=== PATIENT | female | born 1980 | race Caucasian/White ===

== ENCOUNTER 2016-07-29 19:15 | Emergency (ER) | payer OTHER ==
[~2016-07-29] VITALS: Ht 170.2 cm; Wt 51.1 kg
[~2016-07-29 19:15] MED LIST: ACET500C5 PO; ALPR0.5T PO; ALPR2TAB PO; BACTDS PO; CEPH-443 PO
[2016-07-29 19:49] VITALS: Ht 170.2 cm; Wt 51.1 kg
[2016-07-29] MEDS ORDERED: ALPR1TAB2 PO (20:28)
--- NOTE | 2016-07-29 20:33 | ERD ---
ER Documentation Chief Complaint Date/Time DATE: 07/29/16 TIME: 20:31 Chief Complaint pt reports panic attack that started this morning. abc norahct,nad HPI 35-year-old female presents here in emergency department for refill of Xanax medication and anxiety attack started this morning. Patient has been having a lot of stress lately, and problems with her car. Patient ran out of her Xanax, patient is scheduled to refill medications on . Patient does not have a patient. Patient denies any dizziness. Patient does not verbalize homicidal or suicidal ideations. ROS All systems reviewed and are negative except as per history of present illness. Medications Home Meds Active Scripts Alprazolam* (Xanax*) 1 Mg Tab, 1 MG PO Q8H Y for ANXIETY, #7 TAB Prov:KRISTY ROGERS REVERBERATORY FURNACE OPERATOR 07/29/16 Acetaminophen* (Tylophen*) 500 Mg Capsule, 1 CAP PO Q6H Y for PAIN AND OR ELEVATED TEMP, #20 CAP Prov:KRISTY ROGERS NP 01/30/16 Sulfamethoxazole-Trimethoprim* (Bactrim* DS) 800-160 Mg Tab, 1 TAB PO BID for 10 Days, TAB Prov:KRISTY ROGERS REVERBERATORY FURNACE OPERATOR 01/30/16 Cephalexin* (Keflex*) 500 Mg Capsule, 500 MG PO QID for 10 Days, CAP Prov:KRISTY ROGERS NP 01/30/16 Alprazolam* (Xanax*) 2 Mg Tablet, 2 MG PO BID, #10 TAB Prov:CHARISMA BUTTERFIELD PA-C 03/06/15 Alprazolam* (Xanax*) 0.5 Mg Tab, 0.5 MG PO Q8H Y for ANXIETY, #10 TAB Prov:JIMMY ROBISON 02/25/15 Allergies Allergies: Coded Allergies: diclofenac (Verified Allergy, Unknown, 02/24/15) meloxicam (Verified Allergy, Unknown, 02/24/15) Uncoded Allergies: QUINALLINES (Allergy, Unknown, 02/24/15) PMhx/Soc History of Surgery: No Anesthesia Reaction: No Hx Neurological Disorder: No Hx Respiratory Disorders: No Hx Cardiac Disorders: No Hx Psychiatric Problems: No Hx Miscellaneous Medical Probl: Yes (ANXIETY/CHRONIC PAIN) Hx Alcohol Use: No Hx Substance Use: No Hx Tobacco Use: Yes FmHx Family History: No coronary disease, No diabetes, No other Physical Exam Vitals Vital Signs Date Time Temp Pulse Resp B/P Pulse Ox O2 Delivery O2 Flow Rate FiO2 07/29/16 19:49 98.1 67 16 142/84 99 Physical Exam GENERAL: The patient is well developed and appropriate for usual state of health, in no apparent distress. CHEST: Clear to auscultation bilaterally. There are no rales, wheezes or rhonchi. HEART: Regular rate and rhythm. No murmurs, clicks, rubs or gallops. No S3 or S4. ABDOMEN: Soft, nontender and nondistended. Good bowel sounds. No rebound or guarding. No gross peritonitis. No gross organomegaly or masses. No Lockett sign or McBurney point tenderness. BACK: No midline or flank tenderness. EXTREMITIES: Equal pulses bilaterally. There is no peripheral clubbing, cyanosis or edema. No focal swelling or erythema. Full range of motion. Grossly neurovascularly intact. NEURO: Alert and oriented. Cranial nerves 2-12 intact. Motor strength in all 4 extremities with 5/5 strength. Sensation grossly intact. Normal speech and gait. SKIN: There is no apparent rash or petechia. The skin is warm and dry. HEMATOLOGIC AND LYMPHATIC: There is no evidence of excessive bruising or lymphedema. No gross cervical, axillary, or inguinal lymphadenopathy. PSYCHIATRIC: Patient is calm and cooperative. Not verbalizing homicidal or suicidal ideations. Procedures/MDM Medical decision making: Patient's symptoms likely consistent with anxiety attack, here for complaint of medication refill. Patient was recently Xanax, 7 pills only, was advised to follow with primary care doctor for further medications, patient has a refill appointment on . Patient was advised to return for homicidal or suicidal ideations, any other worsening symptoms. Patient was advised to return to emergency department for any worsening symptoms. Follow-up with primary care doctor in 1-2 days for reevaluation of symptoms and for referral medications. Departure Diagnosis: Primary Impression: Encounter for medication refill Additional Impression: Anxiety Condition: Stable Patient Instructions: Anxiety Reaction (Child) Referrals: CAROL ANN MEJIA (PCP) Additional Instructions: see PMD as per appt KRISTY ROGERS NP Jul 29, 2016 20:33
== END 2016-07-29 20:31 | disposition home or self-care (01) ==
LOC: E/R 19:15
DX: Z76.0 Encounter for issue of repeat prescription (principal); Z72.0 Tobacco use
CPT/HCPCS: 99282

== ENCOUNTER 2016-12-13 04:14 | Emergency (ER) | payer OTHER ==
[~2016-12-13] VITALS: Ht 170.2 cm; Wt 58.5 kg
[~2016-12-13 04:14] MED LIST changes: +ALPR1TAB2 PO
[2016-12-13 04:25] VITALS: Ht 170.2 cm; Wt 58.5 kg
[2016-12-13] MEDS ORDERED: ALPR2TAB PO (04:42)
--- NOTE | 2016-12-13 04:53 | ERD ---
ER Documentation Chief Complaint Date/Time DATE: 12/13/16 TIME: 04:44 Chief Complaint med refill on xanax 2mg bid HPI 36-year-old female presents to emergency department for refill of her Xanax, is unable to see her primary care doctor until December 22, patient has been going to different to different urgent cares for refill of her prescriptions. Patient denies any suicidal or homicidal ideations. Denies any other symptoms, denies any anxiety attacks at this time. ROS All systems reviewed and are negative except as per history of present illness. Medications Home Meds Active Scripts Alprazolam* (Xanax*) 2 Mg Tablet, 2 MG PO Q8H Y for ANXIETY, #5 TAB Prov:KRISTY ROGERS ORNITHOLOGY TEACHER 12/13/16 Alprazolam* (Xanax*) 1 Mg Tab, 1 MG PO Q8H Y for ANXIETY, #7 TAB Prov:KRISTY ROGERS ORNITHOLOGY TEACHER 07/29/16 Acetaminophen* (Tylophen*) 500 Mg Capsule, 1 CAP PO Q6H Y for PAIN AND OR ELEVATED TEMP, #20 CAP Prov:KRISTY ROGERS ORNITHOLOGY TEACHER 01/30/16 Sulfamethoxazole-Trimethoprim* (Bactrim* DS) 800-160 Mg Tab, 1 TAB PO BID for 10 Days, TAB Prov:KRISTY ROGERS ORNITHOLOGY TEACHER 01/30/16 Cephalexin* (Keflex*) 500 Mg Capsule, 500 MG PO QID for 10 Days, CAP Prov:KRISTY ROGERS NP 01/30/16 Alprazolam* (Xanax*) 2 Mg Tablet, 2 MG PO BID, #10 TAB Prov:CHARISMA BUTTERFIELD PA-C 03/06/15 Alprazolam* (Xanax*) 0.5 Mg Tab, 0.5 MG PO Q8H Y for ANXIETY, #10 TAB Prov:JIMMY ROBISON 02/25/15 Allergies Allergies: Coded Allergies: diclofenac (Verified Allergy, Unknown, 02/24/15) meloxicam (Verified Allergy, Unknown, 02/24/15) Uncoded Allergies: QUINALLINES (Allergy, Unknown, 02/24/15) PMhx/Soc Medical and Surgical Hx: pt denies Surgical Hx History of Surgery: No Anesthesia Reaction: No Hx Neurological Disorder: No Hx Respiratory Disorders: No Hx Cardiac Disorders: No Hx Psychiatric Problems: No Hx Miscellaneous Medical Probl: Yes (ANXIETY/CHRONIC PAIN) Hx Alcohol Use: No Hx Substance Use: No Hx Tobacco Use: Yes Smoking Status: Current every day smoker FmHx Family History: No coronary disease, No diabetes, No other Physical Exam Vitals Vital Signs Date Time Temp Pulse Resp B/P Pulse Ox O2 Delivery O2 Flow Rate FiO2 12/13/16 04:25 98.3 75 18 124/81 100 Physical Exam GENERAL: The patient is well developed and appropriate for usual state of health, in no apparent distress. CHEST: Clear to auscultation bilaterally. There are no rales, wheezes or rhonchi. HEART: Regular rate and rhythm. No murmurs, clicks, rubs or gallops. No S3 or S4. ABDOMEN: Soft, nontender and nondistended. Good bowel sounds. No rebound or guarding. No gross peritonitis. No gross organomegaly or masses. No Lockett sign or McBurney point tenderness. BACK: No midline or flank tenderness. EXTREMITIES: Equal pulses bilaterally. There is no peripheral clubbing, cyanosis or edema. No focal swelling or erythema. Full range of motion. Grossly neurovascularly intact. NEURO: Alert and oriented. Cranial nerves 2-12 intact. Motor strength in all 4 extremities with 5/5 strength. Sensation grossly intact. Normal speech and gait. SKIN: There is no apparent rash or petechia. The skin is warm and dry. HEMATOLOGIC AND LYMPHATIC: There is no evidence of excessive bruising or lymphedema. No gross cervical, axillary, or inguinal lymphadenopathy. PSYCHIATRIC: Not verbalizing homicidal or suicidal radiations, calm and cooperative. Normal affect and mood. Procedures/MDM Medical decision making: Patient symptoms likely consistent with anxiety, here for medication refill, patient was given 5 pills of Xanax 2 mg to help bridge treatment, patient was given resources are worse she can go in the morning for possible evaluation of her anxiety and further treatment. Patient is not suicidal, does not have any suicidal ideations or homicidal ideations. No symptoms of hallucinations or delusions. Patient was advised to see foot specialist for further evaluation, was given resources. Patient also has return to emergency department for any worsening symptoms. Departure Diagnosis: Primary Impression: Anxiety Additional Impression: Encounter for medication refill Condition: Stable Patient Instructions: Anxiety Reaction KRISTY ROGERS NP Dec 13, 2016 04:53
== END 2016-12-13 04:56 | disposition home or self-care (01) ==
LOC: FTE 04:14
DX: F41.9 Anxiety disorder, unspecified (principal); F17.210 Nicotine dependence, cigarettes, uncomplicated
CPT/HCPCS: 99281